=== PATIENT | male | born 1960 ===

== ENCOUNTER → 2019-08-28 15:24 | Outpatient (REF) | payer OTHER, SELFPAY ==
[2019-08-30 17:18] LABS: COVID-19 RT-PCR Result Not Detected ((See Note))
== END ==
LOC: LBN 15:24
PROVIDERS: Visit Provider Nurse Practitioner Adult Health
DX: Z11.59 Encounter for screening for other viral diseases (principal)
CPT/HCPCS: U0003

== ENCOUNTER 2019-08-29 16:50 | Outpatient (REF) | payer OTHER, SELFPAY ==
[2019-08-29 18:17] LABS: Anion Gap 13.7 mmol/L (3-11); BUN 38 mg/dL (7-18); CO2 23.3 mmol/L (21.0-32.0); CREATININE 1.73 mg/dL (0.70-1.30); Calcium 9.3 mg/dL (8.5-10.1); Chloride 100 mmol/L (98-107); Estimated GFR 40.36 (mL/min/1.73m2); Glucose 136 mg/dL (74-106); Potassium 4.1 mmol/L (3.5-5.1); Sodium 137 mmol/L (136-145)
== END 2019-08-29 17:10 ==
LOC: LBN 16:50
PROVIDERS: PCP Family Medicine; Visit Provider Nurse Practitioner Adult Health
DX: M86.271 Subacute osteomyelitis, right ankle and foot (principal); E11.621 Type 2 diabetes mellitus with foot ulcer
CPT/HCPCS: 80048

== ENCOUNTER → 2019-09-04 10:05 | Outpatient (REF) | payer OTHER, SELFPAY ==
[2019-09-05 18:28] LABS: COVID-19 RT-PCR Result Not Detected ((See Note))
== END ==
LOC: LBN 10:05
PROVIDERS: PCP Family Medicine; Visit Provider Nurse Practitioner Adult Health
DX: Z11.59 Encounter for screening for other viral diseases (principal)
CPT/HCPCS: U0003